=== PATIENT | male | born 1995 | race African-American/Black ===

== ENCOUNTER 2020-08-11 16:25 | Emergency (ER) | payer SELFPAY ==
[~2020-08-11] VITALS: Ht 180.3 cm; Wt 109.0 kg
[2020-08-11 16:35] VITALS: BP 131/78
--- NOTE | 2020-08-11 17:08 | PHYS DOC ---
Past Medical History Past Medical History: No Pertinent History Past Surgical History: No Surgical History Smoking Status: Current Every Day Smoker Alcohol Use: None Drug Use: None General Adult EDM: Chief Complaint: HEADACHE HPI: HPI: Patient is a 25 year old male patient with history of seasonal allergies presenting to the ED today complaining of 5 out of 10 intermittent right-sided headache since June. He states he typically gets similar headaches during summer. Denies this being the worst headache in his life. Denies any nausea, vomiting. Denies any fever. Denies any vision changes. He states he takes Tylenol with minimal relief. He states he is not taking anything for his allergies. Patient is also complaining of penis irritation that he has had for 8 months. He states he has been seen at a different clinic and they have done urine test as well as treated him for STDs with no improvement. Denies any concerns for STDs. Denies any difficulty voiding. Review of Systems: Review of Systems: Constitutional: Denies fever or chills. [] Eyes: Denies change in visual acuity. [] HENT: Denies nasal congestion or sore throat. [] Respiratory: Denies cough or shortness of breath. [] Cardiovascular: Denies chest pain or edema. [] GI: Denies abdominal pain, nausea, vomiting, bloody stools or diarrhea. [] : Reports penis irritation. Denies dysuria. [] Musculoskeletal: Denies back pain or joint pain. [] Integument: Denies rash. [] Neurologic: Reports headache, denies focal weakness or sensory changes. [] Psychiatric: Denies depression or anxiety. [] Heart Score: Risk Factors: Risk Factors: DM, Current or recent (<one month) smoker, HTN, HLP, family history of CAD, obesity. Risk Scores: Score 0 - 3: 2.5% MACE over next 6 weeks - Discharge Home Score 4 - 6: 20.3% MACE over next 6 weeks - Admit for Clinical Observation Score 7 - 10: 72.7% MACE over next 6 weeks - Early Invasive Strategies Allergies: Allergies: Allergies Coded Allergies Type Severity Reaction Last Updated Verified No Known Drug Allergies 07/09/14 No Physical Exam: PE: Constitutional: Well developed, well nourished, no acute distress, non-toxic appearance. [] HENT: Normocephalic, atraumatic, bilateral external ears normal, oropharynx moist, no oral exudates, nose normal. [] Eyes: PERRLA, EOMI, conjunctiva normal, no discharge. [] Neck: Normal range of motion, no tenderness, supple, no stridor. [] Cardiovascular:Heart rate regular rhythm, no murmur [] Lungs & Thorax: Bilateral breath sounds clear to auscultation [] Abdomen: Bowel sounds normal, soft, no tenderness, no masses, no pulsatile masses. [] Male exam deferred per his request Skin: Warm, dry, no erythema, no rash. [] Back: No tenderness, no CVA tenderness. [] Extremities: No tenderness, no cyanosis, no clubbing, ROM intact, no edema. [] Neurologic: Alert and oriented X 3, normal motor function, normal sensory function, no focal deficits noted. Cranial nerves II through XII intact Psychologic: Affect normal, judgement normal, mood normal. [] Current Patient Data: Vital Signs: Vital Signs Date Time Temp Pulse Resp B/P (MAP) Pulse Ox O2 Delivery O2 Flow Rate FiO2 08/11/20 16:35 98.6 67 18 131/78 (95) 99 Room Air 98.6 EKG: EKG: [] Radiology/Procedures: Radiology/Procedures: [] Course & Med Decision Making: Course & Med Decision Making Pertinent Labs and Imaging studies reviewed. (See chart for details) This is a 25-year-old male patient presenting to the ED today complaining of intermittent episodes of right-sided headache since June. Patient's vitals are stable with blood pressures in the low 130s over 80s. He attributes his headaches to seasonal allergies. He is not taking anything for his allergies. Given prescription for Zyrtec, prednisone and diclofenac. He is also complaining of penis irritation that has been going for 8 months. He states he has already been tested for STDs and has had urine examined with no acute findings. Considering the length of time he has had penile issues I referred him to urologist. Nelida Disclaimer: Nelida Disclaimer: This electronic medical record was generated, in whole or in part, using a voice recognition dictation system. Departure Departure Impression: Primary Impression: Seasonal allergies Additional Impressions: Headache Qualified Codes: R51.9 - Headache, unspecified Penis pain Disposition: 01 DC HOME SELF CARE/HOMELESS Condition: STABLE Patient Instructions: Allergies, Generic, Headache, FAQs Additional Instructions: You were evaluated in the emergency room for headache and penis issues. Please follow-up with your primary care doctor for the headache and the urologist provided for the penile issue. Please ensure you are taking your allergy medica tions. Take the prescribed medications as ordered. Dr. Anisha Alvarado M.D. Locations: [facility] [address] [place] [address] [facility] [address] [facility] [address] [place] [address] Provider Type: Urologist To schedule an appointment call: [phone] Scripts Cetirizine Hcl (ZYRTEC) 10 Mg Tablet 1 TAB PO DAILY, #30 TAB 2 Refills Prov: VANESSA PAN APRN 08/11/20 Cyclobenzaprine Hcl (CYCLOBENZAPRINE HCL) 10 Mg Tablet 1 TAB PO TID, #30 TAB Prov: VANESSA PAN APRN 08/11/20 Diclofenac Potassium (DICLOFENAC POTASSIUM) 50 Mg Tablet 1 TAB PO BID, #20 TAB 0 Refills Prov: VANESSA PAN APRN 08/11/20 Prednisone (PREDNISONE) 50 Mg Tablet 1 TAB PO DAILY, #5 TAB Prov: VANESSA PAN APRN 08/11/20 VANESSA PAN APRN Aug 11, 2020 17:08
[2020-08-11] MEDS ORDERED: CYCL10TA2 PO (17:16)
[2020-08-11] MEDS ORDERED: PRED50TA PO (17:16)
[2020-08-11] MEDS ORDERED: CETI10TA74 PO (17:16)
[2020-08-11] MEDS ORDERED: DICL50TA2 PO (17:16)
== END 2020-08-11 17:18 | disposition home or self-care (01) ==
LOC: ER 16:25
DX: J30.2 Other seasonal allergic rhinitis (principal); R51.9 Headache, unspecified; N48.89 Other specified disorders of penis; F17.200 Nicotine dependence, unspecified, uncomplicated
CPT/HCPCS: 99283